=== PATIENT | female | born 2005 | race Caucasian/White ===

== ENCOUNTER 2024-10-13 13:01 | Outpatient (AMB) | payer OTHER, SELFPAY ==
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
--- OUTSIDE RECORDS SUMMARY | 2024-10-13 13:03 | XMS_ITS | Clinical Summary ---
Author Organization [facility] Address [address] [place] [id number] Phone Care Team Providers Care Armhole Baster Jumpbasting Name Role Phone Pcp, Unknown Primary Care Provider Unavailabl e Allergies Active Allergy Reactions Criticality Noted Date Comments Penicillins 02/06/2024 Social History Tobacco Use Types Packs/Day Years Used Date Smoking Tobacco: Never Assessed Education Answer Date Recorded Are you interested in more education? Not on chris e 02/06/2024 Are you concerned about learning? Not on file 02/06/2024 No 02/06/2024 No 02/06/2024 Digital Access Answer Date Recorded No 02/06/2024 No 02/06/2024 Reliable internet access at home? Not on file 02/06/2024 Device with a working camera? Not on file Intimate Partner Violence Answer Date R ecorded Are you denied basic needs s uch as food, clothing, or medical care? No 02/06/2024 In the past 12 months have y ou been in a relationship with a person who hurts, threatens, or tries to control you? No 02/06/2024 Are you denied basic needs s uch as food, clothing, or medical care? No 02/06/2024 In the past 12 months have y ou been in a relationship with a person who hurts, threatens, or tries to control you? No 02/06/2024 Comments Unknown Sex and Gender Information Value Date Recorded Sex Assigned at Not on file Legal Sex Female 2:22 PM EST Gender Identity Not on file Sexual Orientation Not on file Last Filed Vital Signs Vital Sign Reading Time Taken Comments Blood Pressure 114/73 02/06/2024 9:01 PM EST Pulse 68 02/06/2024 9:01 PM EST Temperature 36.3 C (97.4 F) 02/06/2024 9:01 PM EST Respiratory Rate 18 02/06/2024 9:01 PM EST Oxygen Saturation 97% 02/06/2024 9:01 PM EST Inhaled Oxygen Concentration - - Weight - - Height - - Body Mass Index - - Plan of Treatment Health Maintenance Due Date Last Done Comments Adult Td,Tdap Booster 2003 MMR VACCINES (1 of 1 - Stand kylie series) 05/22/2004 COMBINED DTaP,Tdap,Td (1 - Tdap) 05/22/2010 DEPRESSION SCREENING 2015 SMOKING Hx and SMOKELESS TOB ACCO SCREENING 05/22/2016 HPV VACCINES (1 - 3-dose series) 05/22/2018 CHLAMYDIA SCREENING 2019 MENINGOCOCCAL VACCINES (B) ( 1 of 2 - Standard) 2019 ADOLESCENT UNIVERSAL LIPID SCREENING 05/22/2020 HEPATITIS C SCREENING 05/22/2021 HIV ONE-TIME SCREENING (18-6 5 YEARS) 05/22/2021 COVID-19 VACCINE ( - 2023-2 5 season) 2023 PAP SMEAR 05/22/2024 HEPATITIS A VACCINES Aged Out No long er eligible based on patient's age to complete this topic HIB VACCINES Aged Out No longer eligi ble based on patient's age to complete this topic MENINGOCOCCAL VACCINES (ACWY) Aged Out No longer eligible based on patient's age to complete this topic PNEUMOCOCCAL VACCINES (0-49 years) Aged Out No longer eligible based on patient's age to complete this topic Medical Devices Not on file Insurance [employer] [facility] CHOICE CHOICE CHOICE CHOICE CHOICE CHOICE Care Teams Armhole Baster Jumpbasting Relationship Specialty Start Date End Date Pcp, Unknown PCP - General 02/06/24 Additional Source Comments The information contained in this document represents components of the legal health record. It is not the complete legal health record.[facility]
[2024-10-13 13:07] VITALS: BP 104/58; PULSE 83; RESP 16; TEMP 36.8; O2SAT 98; BMI 27.6
== END 2024-10-13 13:50 | disposition home or self-care (01) ==
LOC: HO.HMCSH 13:01
PROVIDERS: PCP Internal Medicine; Visit Provider Physician Assistant Medical
DX: F41.9 Anxiety disorder, unspecified (principal); F32.A Depression, unspecified; F90.9 Attention-deficit hyperactivity disorder, unspecified type; R45.851 Suicidal ideations; Z12.4 Encounter for screening for malignant neoplasm of cervix

== ENCOUNTER → 2024-10-13 13:01 | Outpatient (BNVA) | payer OTHER, SELFPAY | PROVIDERS: PCP Internal Medicine; Visit Provider Physician Assistant Medical | DX: R45.851 Suicidal ideations (principal); F41.9 Anxiety disorder, unspecified; F32.A Depression, unspecified; F90.9 Attention-deficit hyperactivity disorder, unspecified type | CPT/HCPCS: 96127 ==

== ENCOUNTER 2024-10-17 07:15 | Outpatient (REF) | payer OTHER, SELFPAY ==
--- OUTSIDE RECORDS SUMMARY | 2024-10-17 07:21 | XMS_ITS | Clinical Summary ---
Author Organization [facility] Address [address] [facility] [place] [phone] Phone Care Team Providers Care Commercial Collector Name Role Phone Pcp, Unknown Primary Care [...] topic Medical Devices Not on file Insurance [employer] [facility] CHOICE CHOICE CHOICE CHOICE CHOICE CHOICE Care Teams Commercial Collector Relationship Specialty Start Date End Date Pcp, Unknown PCP - General 02/06/24 Additional Source Comments The information contained in this document represents components of the legal health record. It is not the complete legal health record.[facility]
[2024-10-17 10:16] LABS: MANUAL DIFF FLAG NO
[2024-10-17 10:18] LABS: Hematocrit 38.3 % (37.0-47.0); Hemoglobin 12.9 g/dl (12.0-16.0); Imm Gran Abs Auto 0.01 X10*3/uL (0.00-0.03); Imm Gran Pct Auto 0.2 % (0.0-0.4); Lymphocytes Absolute Auto 1.9 X10*3/uL (1.2-4.9); Mean Corpuscular HGB Conc 33.7 g/dl (31.0-35.0); Mean Corpuscular Hemoglobin 29.3 pg (27.0-33.0); Mean Corpuscular Volume 87.0 fL (80.0-98.0); NRBC Abs Auto 0.000 X10*3/uL (0.0-0.012); NRBC Pct Auto 0.0 /100WBC (0.0-0.2); Platelet Count 228 X10*3/uL (160-400); Red Blood Count 4.40 X10*6/uL (4.20-5.50); White Blood Count 4.5 X10*3/uL (4.8-10.8)
[2024-10-17 10:32] LABS: Hemoglobin A1C 108.5624 umol/L; Total Hemoglobin (HGBA1C) 3438.6534 umol/L
[2024-10-17 11:07] LABS: Alanine Aminotransferase 10 U/L (0-31); Albumin Level 4.7 g/dL (3.5-5.0); Alkaline Phosphatase 45 U/L (39-117); Anion Gap 11 (12-20); Aspartate Amino Transferase 22 U/L (5-31); Blood Urea Nitrogen 10 mg/dL (9-16); Calcium 9.1 mg/dL (8.4-10.2); Carbon Dioxide 25 mmol/L (22-29); Chloride 109 mmol/L (96-108); Cholesterol 206 mg/dL (<200); Estimated Glomerular Filt Rate > 60; HDL Cholesterol 50 mg/dL (>40); Magnesium 2.2 mg/dL (1.6-2.6); Potassium 4.2 mmol/L (3.3-5.1); Sodium 141 mmol/L (135-145); Total Protein 7.1 g/dL (6.5-8.0); Triglycerides 98 mg/dL (<150)
[2024-10-17 11:09] LABS: Folate 10.3 ng/mL (> or = 4.0); Vitamin B12 625 pg/mL (200-900)
== END 2024-10-17 07:16 | disposition home or self-care (01) ==
LOC: HO.HMGCLDS 07:15
PROVIDERS: PCP Internal Medicine; Visit Provider Physician Assistant Medical
DX: Z00.00 Encounter for general adult medical examination without abnormal findings (principal); Z13.6 Encounter for screening for cardiovascular disorders; Z13.29 Encounter for screening for other suspected endocrine disorder; Z13.0 Encounter for screening for diseases of the blood and blood-forming organs and certain disorders involving the immune mechanism; Z13.1 Encounter for screening for diabetes mellitus
CPT/HCPCS: 36415; 80053; 80061; 80076; 82248; 82306; 82607; 82746; 83036; 83735; 84443; 85025; 86140

== ENCOUNTER 2024-11-15 14:18 | Outpatient (AMB) | payer OTHER, SELFPAY ==
--- NOTE | 2024-11-15 14:21 | A.OFFPC_ITS ---
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 The anxiety is primarily related to academic stress and has been ongoing. She was prescribed escitalopram by a psychiatrist, replacing her previous medication, Wellbutrin. The patient experiences depressive symptoms, including feeling down and hopeless several days a week, and fatigue nearly every day. She denies significant appetite changes or self-esteem issues. Currently, she takes hydroxyzine as needed for anxiety, which causes drowsiness. A referral for therapy has been made due to issues with school therapy services. Social History - Education: The patient is experiencing anxiety related to academic stress. [facility] Medical History Hyperlipidemia LDL goal <100 Pure hypercholesterolemia, unspecified Leukopenia Suicidal ideations ADHD Depression Cervical cancer screening Anxiety Family History Father Family history of drug addiction Mother High blood pressure Family history of skin cancer Social History Housing: House Alcohol intake: current Alcohol intake frequency: does not drink Patient Tobacco Use Status: Never used Tobacco service: No Current occupational status: employed Cognitive needs: No Hearing needs: No Vision needs: Yes (rx glasses) Questionnaire PHQ-9 Over the last 2 weeks, how often have you been bothered by any of the following problems? 1. Little interest or pleasure in doing things: more than half the days 2. Feeling down, depressed, or hopeless: several days 3. Trouble falling or staying asleep, or sleeping too much: nearly every day 4. Feeling tired or having little energy: nearly every day 5. Poor appetite or overeating: not at all 6. Feeling bad about yourself - or that you are a failure or have let yourself or your family down: more than half the days 7. Trouble concentrating on things, such as reading the newspaper or watching television: several days 8. Moving or speaking so slowly that other people could have noticed. Or the opposite - being so fidgety or restless that you have been moving around a lot m ore than usual: not at all 9. Thoughts that you would be better off or of hurting yourself in some way: several days Total score: 13 Depression Screening Interpretation: Positive Depression Screening Follow-up: Existing condition, In treatment and Follow-up Visit Requested Depression Screening Done: Yes 77636 - PHQ-9 Billing: Yes Source: Developed by Drs. Yaakov Belcher, Kelly Alfaro, Mina Durbin and colleagues, with an educational luis from [employer] Thrive Questionnaire Date Thrive assessed: 10/13/24 I am a: Patient What is your living situation today?: I have a steady place to live Within the past 12 months, did the food you bought not last and you didn't have the money to get more?: Never true Within the past 12 months, did you worry whether your food would run out before you got money to buy more?: Never true Do you have trouble paying for medicines?: No Do you have trouble getting transportation to medical appointments?: No Do you have trouble paying your heating and electricity bill?: No Do you have trouble taking care of your child, family member or friend?: No Do you have trouble with day-to-day activities such as bathing, preparing meals, shopping, managing finances, etc.?: No Are you currently unemployed and looking for a job?: No Are you interested in more education?: No Please select the resources that you would like help with: None Currently or been in a relationship where the following occur: No concerns reported THRIVE Score: 0 AUDIT C Alcohol Use Questionnaire (AUDIT-C) 1. How often do you have a drink containing alcohol?: Never 3. How often do you have six or more drinks on one occasion?: Never Total Score: 0 Score Reviewed/Action Taken: No LOIS-7 AMB Questionnaire LOIS-7 Date LOIS - 7 assessed: 10/13/24 Feeling nervous, anxious, or on edge: 3 = Nearly every day Not being able to stop or control worryin = Nearly every day Worrying too much about different things: 3 = Nearly every day Trouble relaxin = More than half the days Being so restless that it is hard to sit still: 0 = Not at all Becoming easily annoyed or irritable: 1 = Several days Feeling afraid as if something awful might happen: 3 = Nearly every day Total LOIS-7 score (0-4 normal; 5-9 mild; 10-14 moderate; 15-21 severe): 15 Source: Developed by Drs. Yaakov Belcher, Kelly Alfaro, Mina Durbin and colleagues, with an educational luis from [employer] LOIS-7 Assessment Billing LOIS-7 Assessment Tool: LOIS-7 Assessment 38198 Review of Systems Const Details: - Psychiatric: Reports anxiety related to school, depressive symptoms several days a week, fatigue nearly every day. Denies significant appetite changes or self-esteem issues. All systems reviewed & are unremarkable except as noted in HPI and below Physical exam (Primary Care) Tobacco/Smoking Status: Tobacco use Status Tobacco use date assessed 10/13/24 11/15/24 14:25 Patient Tobacco Use Status Never used Tobacco 11/15/24 14:25 PHQ-9: PHQ-9 Score PHQ-9: Total score 13 11/15/24 14:51 Depression Screening Interpretation: Positive Depression Screening Follow-up: Existing condition, In treatment and Follow-up Visit Requested Thrive Assessment: Date of Thrive Assessment Date Thrive assessed 10/13/24 11/15/24 14:25 Currently or been in a relationship where the following occur: No concerns reported Telehealth Telehealth Telehealth Platform: Telephone Location of provider rendering services: practice address Location of patient: address on file Patient Identification confirmed using: Name, : Yes Telehealth method: voice only Patient verbally consented to treatment: Yes Patient verbally consented to billing insurance company: Yes Patient informed of any privacy concerns related to visit: Yes Minutes spent on Phone/Video with Pt.: 20 Coding Level of Care Code Tele Est Pt Level 4 (88019) Complex EM visit Add On G2211 Diagnoses Anxiety F41.9 Depression F32.A Additional Codes LOIS-7 Assessment Billing - LOIS-7 Assessment Tool: LOIS-7 Assessment 07371 ([id number]) PHQ-9 - 18112 - PHQ-9 Billing: Yes ([id number]) Assessment & Plan Assessment & Plan (1) Anxiety: Code(s): F41.9 - Anxiety disorder, unspecified Category: Medical Plan: The patient will continue with escitalopram as prescribed by her psychiatrist. A referral for therapy has been made to address ongoing anxiety issues related to academic stress. (2) Depression: Code(s): F32.A - Depression, unspecified Category: Medical Plan: The patient will continue with escitalopram for depression management. Follow-up appointments have been scheduled to monitor her response to treatment. Plan Plan Patient was informed and verbally consented to the use of an ambient scribe for clinic note documentation during this visit. 1. Anxiety Disorder The patient will continue with escitalopram as prescribed by her psychiatrist. A referral for therapy has been made to address ongoing anxiety issues related to academic stress. 2. Depression The patient will continue with escitalopram for depression management. Follow-up appointments have been scheduled to monitor her response to treatment. During the visit, we discussed the continuation of escitalopram for managing anxiety and depression. I recommended a referral for therapy to address her anxiety related to academic stress. We also confirmed that follow-up appointments are scheduled to monitor her progress. Orders: Referrals Counseling Referral F32.A - Depression, unspecified, F41.9 - Anxiety disorder, unspecified, F90.9 - Attention-deficit hyperactivity disorder, unspecified type Patient Instructions: - Continue taking escitalopram as prescribed. - Attend therapy sessions as referred. - Follow up with scheduled appointments to monitor progress.
--- OUTSIDE RECORDS SUMMARY | 2024-11-15 17:02 | XMS_ITS | Clinical Summary ---
Author Organization [facility] Address [address] [place] [phone] Phone Care Team Providers Care Thread Dresser Name Role Phone Pcp, Unknown Primary Care [...] HIV ONE-TIME SCREENING (18-6 5 YEARS) 05/22/2021 PAP SMEAR 05/22/2024 INFLUENZA VACCINE (#1) 2024 COVID-19 VACCINE (1 - 2023-2 5 season) 2024 HEPATITIS A VACCINES Aged Out No long [...] topic Medical Devices Not on file Insurance [employer] [facility] CHOICE CHOICE CHOICE CHOICE CHOICE CHOICE Care Teams Thread Dresser Relationship Specialty Start Date End Date Pcp, Unknown PCP - General 02/06/24 Additional Source Comments The information contained in this document represents components of the legal health record. It is not the complete legal health record.[facility]
== END 2024-11-15 14:56 | disposition home or self-care (01) ==
LOC: HO.HMCSH 14:18
PROVIDERS: PCP Internal Medicine; Visit Provider Physician Assistant Medical
DX: F41.9 Anxiety disorder, unspecified (principal); F32.A Depression, unspecified

== ENCOUNTER → 2024-11-15 14:18 | Outpatient (BNVA) | payer OTHER, SELFPAY | PROVIDERS: PCP Internal Medicine; Visit Provider Physician Assistant Medical | DX: F41.9 Anxiety disorder, unspecified (principal); F32.A Depression, unspecified; F90.9 Attention-deficit hyperactivity disorder, unspecified type; Z79.899 Other long term (current) drug therapy | CPT/HCPCS: 96127 ==